=== PATIENT | female | born 1945 | race Two or more races ===

== ENCOUNTER 2018-01-02 15:50 | Outpatient (CLI) | payer OTHER | END 2018-01-02 16:27 | disposition home or self-care (01) | LOC: RAD 501 15:50 | DX: M25.561 Pain in right knee (principal); M25.562 Pain in left knee ==

== ENCOUNTER 2022-05-26 14:51 | Outpatient (CLI) | payer OTHER | END 2022-05-26 14:56 | disposition home or self-care (01) | LOC: RAD 14:51 | PROVIDERS: ATTEND Orthopaedic Surgery | DX: M25.571 Pain in right ankle and joints of right foot (principal) ==

== ENCOUNTER 2022-06-07 15:47 | Outpatient (CLI) | payer OTHER | END 2022-06-07 15:53 | disposition home or self-care (01) | LOC: RAD 15:47 | PROVIDERS: ATTEND Orthopaedic Surgery | DX: M25.571 Pain in right ankle and joints of right foot (principal) ==